=== PATIENT | female | born 1950 | race Caucasian/White ===

== ENCOUNTER 2022-02-06 15:28 | Inpatient (IN) | payer BC, MEDICARE ==
[~2022-02-06] VITALS: Ht 172.7 cm; Wt 68.0 kg
[2022-02-06] MEDS ORDERED: XALA0.007 OU (16:01)
[2022-02-06] MEDS ORDERED: LOTR5CAP2 PO (16:01)
[2022-02-06] MEDS ORDERED: NS 1,000 ML IV ONE (16:10)
[2022-02-06] MEDS ORDERED: ONDANSETRON 4MG 2ML VIAL IV ONE (16:10)
[2022-02-06 16:29] LABS: BASO # 0.1 10^3/uL (0.0-0.2); BASO % 0.6 % (0.0-1.0); EOS # 0.2 10^3/uL (0.0-0.5); EOS % 1.6 % (0.0-3.0); HEMATOCRIT 39.4 % (36.0-47.0); HEMOGLOBIN 13.5 g/dl (12.0-15.5); LYMPH # 2.8 10^3/uL (1.5-5.0); LYMPH % 28.5 % (24.0-44.0); MEAN CORPUSCULAR HEMOGLOBIN 30.1 pg (27.0-33.0); MEAN CORPUSCULAR HGB CONC 34.3 g/dl (32.0-36.5); MEAN CORPUSCULAR VOLUME 87.8 fl (80.0-96.0); MONO # 0.4 10^3/uL (0.0-0.8); MONO % 4.5 % (2.0-8.0); NEUTROPHILS # 6.2 10^3/uL (1.5-8.5); NEUTROPHILS % 64.3 % (36.0-66.0); PLATELET COUNT, AUTOMATED 305 10^3/uL (150-450); RED BLOOD COUNT 4.49 10^6/uL (4.00-5.40); WHITE BLOOD COUNT 9.7 10^3/uL (4.0-10.0)
[2022-02-06] MEDS ORDERED: POTASSIUM CHLORIDE 10MEQ SR TABLET PO ONE (16:40)
[2022-02-06 17:18] LABS: ALBUMIN 3.9 GM/DL (3.2-5.2); ALT/SGPT 22 U/L (12-78); BILIRUBIN,DIRECT 0.2 MG/DL (0.0-0.2); BLOOD UREA NITROGEN 14 MG/DL (7-18); CALCIUM LEVEL 8.9 MG/DL (8.8-10.2); CARBON DIOXIDE LEVEL 27 MEQ/L (21-32); CHLORIDE LEVEL 101 MEQ/L (98-107); CREATININE FOR GFR 0.69 MG/DL (0.55-1.30); GLOMERULAR FILTRATION RATE > 60.0 (>39); GLUCOSE, FASTING 132 MG/DL (70-100); POTASSIUM SERUM 3.3 MEQ/L (3.5-5.1); SODIUM LEVEL 135 MEQ/L (136-145); TOTAL PROTEIN 7.3 GM/DL (6.4-8.2)
[2022-02-06] MEDS ORDERED: LR 1,000 ML IV ONE (18:00)
[2022-02-06] MEDS ORDERED: VITA100093 PO (18:27)
[2022-02-06] MEDS ORDERED: CODCAP6 PO (18:27)
[2022-02-06] MEDS ORDERED: CAL-TAB2 PO (18:27)
[2022-02-06] MEDS ORDERED: SUPETAB56 PO (18:27)
[2022-02-06] MEDS ORDERED: TIMO1DRO OU (18:27)
[2022-02-06] MEDS: LR 1,000 ML IV SCH ×2 (18:30→23:12)
[2022-02-06] MEDS ORDERED: HOME MED LIST COMPLETE! XX SCH (18:30)
[2022-02-06 19:14] LABS: INR 0.98; PROTHROMBIN TIME 13.4 SECONDS (12.7-14.5)
[2022-02-06 19:15] LABS: PARTIAL THROMBOPLASTIN TIME 25.9 SECONDS (25.9-37.0)
[2022-02-06 20:02] LABS: MAGNESIUM LEVEL 2.1 MG/DL (1.8-2.4)
[2022-02-06 20:06] LABS: RSV AMPLIFICATION NEGATIVE (NEGATIVE)
[2022-02-06] MEDS ORDERED: METOPROLOL TART 25 MG TABLET PO SCH (21:00)
[2022-02-06] MEDS: APIXABAN 5 MG TAB (ELIQUIS) PO SCH (21:00)
[2022-02-06 22:26] VITALS: BP 125/89
[2022-02-07] MEDS: diltiaZEM 125 MG in NS 100 ML IV SCH ×2 (00:54→23:05)
[2022-02-07 01:00] VITALS: BP 98/61
[2022-02-07 04:00] VITALS: BP 125/78
[2022-02-07 07:59] LABS: HEMATOCRIT 33.6 % (36.0-47.0); HEMOGLOBIN 11.7 g/dl (12.0-15.5); MEAN CORPUSCULAR HEMOGLOBIN 30.5 pg (27.0-33.0); MEAN CORPUSCULAR HGB CONC 34.8 g/dl (32.0-36.5); MEAN CORPUSCULAR VOLUME 87.5 fl (80.0-96.0); PLATELET COUNT, AUTOMATED 259 10^3/uL (150-450); RED BLOOD COUNT 3.84 10^6/uL (4.00-5.40); WHITE BLOOD COUNT 10.1 10^3/uL (4.0-10.0)
[2022-02-07 08:08] VITALS: BP_SYST 116; BP_SYST 119; BP_SYST 122; BP_DIAS 78; BP_DIAS 80; BP_DIAS 85
[2022-02-07 08:10] LABS: ALBUMIN 2.9 GM/DL (3.2-5.2); ALT/SGPT 17 U/L (12-78); BILIRUBIN,TOTAL 0.9 MG/DL (0.2-1.0); BLOOD UREA NITROGEN 8 MG/DL (7-18); CALCIUM LEVEL 8.3 MG/DL (8.8-10.2); CARBON DIOXIDE LEVEL 26 MEQ/L (21-32); CHLORIDE LEVEL 103 MEQ/L (98-107); CREATININE FOR GFR 0.62 MG/DL (0.55-1.30); GLOMERULAR FILTRATION RATE > 60.0 (>39); GLUCOSE, FASTING 104 MG/DL (70-100); POTASSIUM SERUM 3.6 MEQ/L (3.5-5.1); SODIUM LEVEL 133 MEQ/L (136-145); TOTAL PROTEIN 5.7 GM/DL (6.4-8.2)
[2022-02-07 08:35] LABS: ATYPICAL LYMPH 8 % (0-5); LYMPHOCYTES 32 % (16-44); MONOCYTES 4 % (0-5); NEUTROPHILS 56 % (28-66)
[2022-02-07 08:36] LABS: PLATELET CLUMPS SMALL AMT; PLATELET ESTIMATE NORMAL (NORMAL)
[2022-02-07] MEDS ORDERED: ENOXAPARIN 40MG/0.4ML SYRINGE (J1650 PER 10MG) SC SCH (09:00)
[2022-02-07] MEDS: APIXABAN 5 MG TAB (ELIQUIS) PO SCH (09:27)
[2022-02-07] MEDS: METOPROLOL TART 25 MG TABLET PO SCH ×2 (09:27→20:43)
[2022-02-07] MEDS: LR 1,000 ML IV SCH ×2 (10:43→23:00)
[2022-02-07] MEDS ORDERED: NITROGLYCERIN 0.4 MG SUBL TABLET SL PRN (11:10)
[2022-02-07] MEDS ORDERED: HEPARIN SOD (PORCINE) 5000UNITS/ML 1ML VIAL/SYRINGE IV PRN (11:15)
[2022-02-07] MEDS: ATORVASTATIN 20 MG TAB PO SCH (11:25)
[2022-02-07] MEDS ORDERED: ASPIRIN 325 MG TAB PO ONE (11:30)
[2022-02-07 12:03] VITALS: BP 116/76
[2022-02-07 12:03] LABS: HEMATOCRIT 33.2 % (36.0-47.0); HEMOGLOBIN 11.3 g/dl (12.0-15.5); MEAN CORPUSCULAR VOLUME 88.1 fl (80.0-96.0); PLATELET COUNT, AUTOMATED 245 10^3/uL (150-450); RED BLOOD COUNT 3.77 10^6/uL (4.00-5.40)
[2022-02-07] MEDS: HEPARIN DRIP 25,000 UNITS in IV 1 EA IV SCH ×2 (13:33→20:40)
[2022-02-07 16:00] VITALS: BP 132/78
[2022-02-07 18:42] LABS: BASO % 0.3 % (0.0-1.0); EOS # 0.1 10^3/uL (0.0-0.5); EOS % 1.2 % (0.0-3.0); HEMATOCRIT 32.3 % (36.0-47.0); HEMOGLOBIN 10.8 g/dl (12.0-15.5); LYMPH # 5.4 10^3/uL (1.5-5.0); LYMPH % 58.8 % (24.0-44.0); MEAN CORPUSCULAR HEMOGLOBIN 29.3 pg (27.0-33.0); MEAN CORPUSCULAR HGB CONC 33.4 g/dl (32.0-36.5); MEAN CORPUSCULAR VOLUME 87.8 fl (80.0-96.0); MONO # 0.4 10^3/uL (0.0-0.8); MONO % 4.6 % (2.0-8.0); NEUTROPHILS # 3.2 10^3/uL (1.5-8.5); NEUTROPHILS % 34.8 % (36.0-66.0); PLATELET COUNT, AUTOMATED 224 10^3/uL (150-450); RED BLOOD COUNT 3.68 10^6/uL (4.00-5.40); WHITE BLOOD COUNT 9.2 10^3/uL (4.0-10.0)
[2022-02-07 19:15] LABS: BLOOD UREA NITROGEN 7 MG/DL (7-18); CALCIUM LEVEL 8.1 MG/DL (8.8-10.2); CARBON DIOXIDE LEVEL 25 MEQ/L (21-32); CHLORIDE LEVEL 102 MEQ/L (98-107); CREATININE FOR GFR 0.74 MG/DL (0.55-1.30); GLOMERULAR FILTRATION RATE > 60.0 (>39); GLUCOSE, FASTING 132 MG/DL (70-100); POTASSIUM SERUM 3.4 MEQ/L (3.5-5.1); SODIUM LEVEL 133 MEQ/L (136-145)
[2022-02-07 20:00] VITALS: BP 123/81
[2022-02-07] MEDS: VITAMIN D 1,000 INTERNATIONAL UNITS TABLET PO SCH (20:43)
[2022-02-07] MEDS: LATANOPROST 0.005% OPHTH SOLN 2.5 ML OU SCH (20:44)
[2022-02-08 04:00] VITALS: BP 159/91
[2022-02-08] MEDS: LR 1,000 ML IV SCH (05:00)
[2022-02-08 05:40] LABS: BASO % 0.4 % (0.0-1.0); EOS # 0.1 10^3/uL (0.0-0.5); EOS % 1.5 % (0.0-3.0); HEMATOCRIT 34.6 % (36.0-47.0); HEMOGLOBIN 11.6 g/dl (12.0-15.5); LYMPH # 4.9 10^3/uL (1.5-5.0); MEAN CORPUSCULAR HEMOGLOBIN 29.5 pg (27.0-33.0); MEAN CORPUSCULAR HGB CONC 33.5 g/dl (32.0-36.5); MONO # 0.5 10^3/uL (0.0-0.8); MONO % 5.8 % (2.0-8.0); NEUTROPHILS # 2.5 10^3/uL (1.5-8.5); NEUTROPHILS % 31.2 % (36.0-66.0); PLATELET COUNT, AUTOMATED 224 10^3/uL (150-450); RED BLOOD COUNT 3.93 10^6/uL (4.00-5.40); WHITE BLOOD COUNT 8.1 10^3/uL (4.0-10.0)
[2022-02-08 05:49] LABS: BLOOD UREA NITROGEN 8 MG/DL (7-18); CALCIUM LEVEL 8.1 MG/DL (8.8-10.2); CARBON DIOXIDE LEVEL 27 MEQ/L (21-32); CHLORIDE LEVEL 107 MEQ/L (98-107); CREATININE FOR GFR 0.54 MG/DL (0.55-1.30); GLOMERULAR FILTRATION RATE > 60.0 (>39); GLUCOSE, FASTING 100 MG/DL (70-100); MAGNESIUM LEVEL 1.8 MG/DL (1.8-2.4); POTASSIUM SERUM 3.4 MEQ/L (3.5-5.1); SODIUM LEVEL 139 MEQ/L (136-145)
[2022-02-08 07:47] VITALS: BP 139/92
[2022-02-08] MEDS: POTASSIUM CHLORIDE 10MEQ SR TABLET PO SCH ×2 (08:04→21:27)
[2022-02-08] MEDS: ASPIRIN 81MG ENTERIC TABLET PO SCH (08:04)
[2022-02-08] MEDS: ATORVASTATIN 20 MG TAB PO SCH (08:05)
[2022-02-08] MEDS ORDERED: METOPROLOL TART 25 MG TABLET PO SCH (09:00)
[2022-02-08] MEDS: APIXABAN 5 MG TAB (ELIQUIS) PO SCH ×2 (11:57→21:27)
[2022-02-08 12:00] VITALS: BP 126/83
[2022-02-08 16:00] VITALS: BP 125/82
[2022-02-08 20:00] VITALS: BP 135/85
[2022-02-08] MEDS: LATANOPROST 0.005% OPHTH SOLN 2.5 ML OU SCH (21:27)
[2022-02-08] MEDS: VITAMIN D 1,000 INTERNATIONAL UNITS TABLET PO SCH (21:27)
[2022-02-09 01:07] VITALS: BP 139/79
[2022-02-09 04:00] VITALS: BP 149/81
[2022-02-09 05:05] LABS: HEMATOCRIT 34.2 % (36.0-47.0); HEMOGLOBIN 11.7 g/dl (12.0-15.5); MEAN CORPUSCULAR HEMOGLOBIN 30.2 pg (27.0-33.0); MEAN CORPUSCULAR HGB CONC 34.2 g/dl (32.0-36.5); MEAN CORPUSCULAR VOLUME 88.4 fl (80.0-96.0); PLATELET COUNT, AUTOMATED 219 10^3/uL (150-450); RED BLOOD COUNT 3.87 10^6/uL (4.00-5.40); WHITE BLOOD COUNT 8.6 10^3/uL (4.0-10.0)
[2022-02-09 05:35] LABS: BLOOD UREA NITROGEN 8 MG/DL (7-18); CALCIUM LEVEL 8.8 MG/DL (8.8-10.2); CARBON DIOXIDE LEVEL 26 MEQ/L (21-32); CHLORIDE LEVEL 106 MEQ/L (98-107); CREATININE FOR GFR 0.66 MG/DL (0.55-1.30); GLOMERULAR FILTRATION RATE > 60.0 (>39); GLUCOSE, FASTING 95 MG/DL (70-100); POTASSIUM SERUM 3.9 MEQ/L (3.5-5.1); SODIUM LEVEL 138 MEQ/L (136-145)
[2022-02-09 06:45] VITALS: BP 149/81
[2022-02-09] MEDS: ATORVASTATIN 20 MG TAB PO SCH (09:00)
[2022-02-09] MEDS: ASPIRIN 81MG ENTERIC TABLET PO SCH (09:08)
[2022-02-09] MEDS: APIXABAN 5 MG TAB (ELIQUIS) PO SCH (09:08)
[2022-02-09] MEDS: POTASSIUM CHLORIDE 10MEQ SR TABLET PO SCH (09:10)
[2022-02-09 09:21] VITALS: BP 127/84
[2022-02-09] MEDS ORDERED: CARD240C5 PO (10:07)
[2022-02-09] MEDS ORDERED: ELIQ5TAB PO (10:07)
== END 2022-02-09 11:39 | disposition home or self-care (01) | DRG 201 ==
LOC: EDBD 15:28 → M ED 15:28 → M ED INP 15:29 → M PCU 22:26 → OBSVTOIN 02-08 17:56
PROVIDERS: ADMIT Internal Medicine; ATTEND Internal Medicine
DX: I48.91 Unspecified atrial fibrillation (principal); I24.8 Other forms of acute ischemic heart disease; E86.0 Dehydration; E87.1 Hypo-osmolality and hyponatremia; E87.6 Hypokalemia; I10 Essential (primary) hypertension; I25.10 Atherosclerotic heart disease of native coronary artery without angina pectoris; R11.2 Nausea with vomiting, unspecified; R19.7 Diarrhea, unspecified; Z79.899 Other long term (current) drug therapy